=== PATIENT | female | born 1985 | race American Indian/Alaskan Native ===

== ENCOUNTER 2017-01-07 13:15 | Emergency (ER) | payer SELFPAY ==
[2017-01-07] MEDS ORDERED: ROCEPHIN IM ONE (18:51)
[2017-01-07] MEDS ORDERED: XYLOCAINE 1% MPF 5 mL INFILTRATI ONE (18:51)
[2017-01-07] MEDS ORDERED: MARCAINE 0.5% INFILTRATI ONE (18:51)
--- NOTE | 2017-01-07 19:42 | Emergency Department Report ---
Entered by MORGAN DAVIS, acting as scribe for TERESA TOVAR PA. - General Chief complaint: Skin/Abscess/Foreign Body Stated complaint: BARTHOLIN GLAND SWOLLEN Time Seen by Provider: 01/07/17 17:48 Source: patient, family Mode of arrival: Ambulatory Limitations: No Limitations - History of Present Illness Initial comments: 31 y/o female presents to the ED c/o boil to left labia that began 2 days ago. Associate symptoms include pain but she denies fever, chills, nausea, vomiting, abdominal pain, frequency, urgency, vaginal discharge and vaginal bleeding. Pain is described as achy, constant and 10/10 on a severity scale. Patient states the boil has increased in size over the last 2 days but that it has been there for awhile . Not seeing any provider for problem. No alleviating or aggravating factors. NKDA. Last menstrual period was 12/15/2016 complaint: abscess/boil (vaginal area) Onset/Timin -: days(s) (getting worst) Tetanus Up to Date: yes Location: genitals Severity: severe Severity scale (0 -10): 10 Quality: aching, constant, other (throbbing) Consistency: constant Improves with: rest Worsens with: palpation, movement Context: other (unknown) Associated symptoms: denies other symptoms Treatments Prior to Arrival: none - Related Data Previous Rx's Medication Instructions Recorded Last Taken Type Ibuprofen [Motrin] 600 mg PO Q8H PRN #15 tablet 01/07/17 Unknown Rx Sulfamethoxazole/Trimethoprim 1 each PO BID #20 tablet 01/07/17 Unknown Rx [Bactrim DS TAB] Allergies Allergy/AdvReac Type Severity Reaction Status Date / Time No Known Allergies Allergy Unverified 01/07/17 13:31 Abscess Boil HPI - HPI Chief Complaint: Skin/Abscess/Foreign Body Stated Complaint: BARTHOLIN GLAND SWOLLEN Time Seen by Provider: 01/07/17 17:48 Duration: 2 Days Location: Other (left labia) Severity: Severe History: No Fever, No Pain, No Purulent Drainage, No Numbness, No Foreign Body, No Previous History, No Insect Bite Home Medications: Previous Rx's Medication Instructions Recorded Last Taken Type Ibuprofen [Motrin] 600 mg PO Q8H PRN #15 tablet 01/07/17 Unknown Rx Sulfamethoxazole/Trimethoprim 1 each PO BID #20 tablet 01/07/17 Unknown Rx [Bactrim DS TAB] Allergies/Adverse Reactions: Allergies Allergy/AdvReac Type Severity Reaction Status Date / Time No Known Allergies Allergy Unverified 01/07/17 13:31 ED Review of Systems Comment: All other systems reviewed and negative Constitutional: denies: chills, fever ENT: denies: throat pain Respiratory: no symptoms reported Cardiovascular: denies: chest pain, palpitations, dyspnea on exertion, edema, syncope Gastrointestinal: denies: abdominal pain, nausea, vomiting Genitourinary: denies: urgency, dysuria, frequency, hematuria, discharge, abnormal menses, other (vaginal discharge and vaginal bleeding) Skin: other (boil in left labia) Neurological: denies: headache, numbness, paresthesias, abnormal gait, vertigo ED Past Medical Hx - Past Medical History Previous Medical History?: No - Surgical History Past Surgical History?: No - Family History Family history: no significant - Social History Smoking Status: Never Smoker Substance Use Type: None - Medications Home Medications: Home Medications Medication Instructions Recorded Confirmed Last Taken Type Ibuprofen [Motrin] 600 mg PO Q8H PRN #15 tablet 01/07/17 Unknown Rx Sulfamethoxazole/Trimethoprim 1 each PO BID #20 tablet 01/07/17 Unknown Rx [Bactrim DS TAB] ED Physical Exam - General Limitations: No Limitations General appearance: alert, in no apparent distress - Head Head exam: Present: atraumatic, normocephalic, normal inspection - Eye Eye exam: Present: normal appearance, PERRL, EOMI. Absent: conjunctival injection Pupils: Present: normal accommodation - ENT ENT exam: Present: normal exam, normal orophraynx, mucous membranes moist - Neck Neck exam: Present: normal inspection, full ROM. Absent: tenderness, meningismus, lymphadenopathy - Respiratory Respiratory exam: Present: normal lung sounds bilaterally, respiratory distress. Absent: wheezes, rales, rhonchi, stridor, accessory muscle use - Cardiovascular Cardiovascular Exam: Present: regular rate, normal rhythm, normal heart sounds - GI/Abdominal GI/Abdominal exam: Present: soft, normal bowel sounds. Absent: tenderness, guarding, rebound, rigid - External exam: Present: erythema (labia majora), swelling (left labia majora), other (positive induration and fluctuance left labia majora). Absent: lesions, lacerations, ecchymosis, bleeding - Extremities Exam Extremities exam: Present: normal inspection, full ROM, normal capillary refill. Absent: tenderness, pedal edema, joint swelling, calf tenderness - Back Exam Back exam: Present: normal inspection, full ROM. Absent: tenderness, CVA tenderness (R), CVA tenderness (L), muscle spasm, paraspinal tenderness, vertebral tenderness, rash noted - Neurological Exam Neurological exam: Present: alert, oriented X3, normal gait - Psychiatric Psychiatric exam: Present: normal affect, normal mood - Skin Skin exam: Present: warm, dry, intact, other (boil in left labia majora (4.5 cm in lenght, 3.5 cm in width), tender to palpate, induration and flunctuance) - Expanded Skin Exam Expanded Type of lesion: Present: abscess (Left labia majora) Distribution of rash: genitals (left labiqa majora) Description of rash: Present: size (4.5 x 3.5 cm), tenderness, erythematous, swelling, fluctuant, indurated. Absent: discharge ED Course Vital Signs 01/07/17 13:32 Temperature 98.5 F Pulse Rate 99 H Respiratory 17 Rate Blood Pressure 108/69 O2 Sat by Pulse 100 Oximetry - Reevaluation(s) Reevaluation #1: 01/07/17 19:31 Patient had uneventful ED stay. See procedure note for details on incision and drainage. She was given Rocephin 1 g IM for cellulitis to labia majora. 01/07/17 19:32 - I & D Left Vagina Type of Procedure: Complex Site: left labia majora Blade Size: 11 I & D Procedure: betadine prep, sterile drapes applied, sterile dressing applied , gauze wick placed Progress: Patient tetanus status up-to-date. She tolerated procedure well. ED Medical Decision Making - Medical Decision Making ED course: Patient with cellulitis and abscess to left labia majora. The procedure note for incision and drainage. Tetanus vaccine is up-to-date per patient. Patient given Rocephin 1 g IM in the emergency room for cellulitis and abscess of the left labia majora. Patient does not have a primary care physician or [employer] doctor said that she needs to follow-up with that [facility] for primary care. I discussed with her that she needs to return to the emergency room in 4 days for removal of packing. Patient does understand the discharge instructions and treatment plan and discharged home with prescription for Motrin and Bactrim DS. ED Disposition Clinical Impression: Cellulitis of labia majora, Abscess of labia majora, Encounter for incision and drainage procedure Disposition: TO HOME OR SELFCARE Is pt being admited?: No Does the pt Need Aspirin: No Condition: Stable Instructions: Abscess Incision and Drainage (ED), Cellulitis (ED) Additional Instructions: Follow-up with [facility] for primary care. Please return to emergency room in 4 days for packing removal. Do not remove packing in for vaginal area. Take antibiotic as prescribed Keep affected area clean and dry and apply warm compresses 3-4 times a day. Prescriptions: Ibuprofen [Motrin] 600 mg PO Q8H PRN #15 tablet PRN Reason: Pain Sulfamethoxazole/Trimethoprim [Bactrim DS TAB] 1 each PO BID #20 tablet Referrals: [facility] [Outside] - 3-5 Days ED,RETURN [Other] - 01/11/17 (Please return to the ER in 4 days for removal of packing.) Forms: Accompanied Note, Work/School Release Form(ED) This documentation as recorded by the RYAN small ELIZABETH,accurately reflects the service I personally performed and the decisions made by me,TERESA TOVAR PA.
[2017-01-07 20:17] VITALS: BP 120/71
== END 2017-01-07 19:45 | disposition home or self-care (01) ==
LOC: ED 13:15
DX: N76.2 Acute vulvitis (principal); N76.4 Abscess of vulva
CPT/HCPCS: 56405; 96372; 99282; J0696